=== PATIENT | male | born 1985 | race Two or more races ===

== ENCOUNTER 2022-12-07 18:41 | Inpatient (IN) | payer OTHER ==
[2022-12-07 19:29] VITALS: BMI 35.4
[2022-12-07] MEDS ORDERED: IBUPROFEN 400 MG TABLET (FP) PO PRN (19:43)
[2022-12-07] MEDS ORDERED: ONDANSETRON *ODT* 4 MG TABLET SL PRN (19:43)
[2022-12-07] MEDS ORDERED: IBUPROFEN 600 MG TABLET (FP) PO PRN (19:43)
[2022-12-07] MEDS ORDERED: guaiFENesin 600 MG TABLET.ER (FP) PO PRN (19:43)
[2022-12-07] MEDS ORDERED: DICYCLOMINE HCL 10 MG CAPSULE PO PRN (19:43)
[2022-12-07] MEDS ORDERED: BISMUTH SUBSALICYLATE 524 MG/30 ML PO PRN (19:43)
[2022-12-07] MEDS ORDERED: MAGNESIUM HYDROX 2400MG/30ML ORAL SUSPENSION 30 ML CUP PO PRN (19:43)
[2022-12-07] MEDS ORDERED: BENZOCAINE/MENTHOL (CHLORASEPTIC ) LOZENGE MM PRN (19:43)
[2022-12-07] MEDS ORDERED: BENZONATATE 200 MG CAPSULE PO PRN (19:43)
[2022-12-07] MEDS ORDERED: chlordiazePOXIDE HCL 25 MG CAPSULE PO PRN (19:43)
[2022-12-07] MEDS ORDERED: ACETAMINOPHEN 325 MG TABLET (FP) PO PRN (19:43)
[2022-12-07] MEDS ORDERED: NICOTINE 10 MG CARTRIDGE (INHALER) IH PRN (19:43)
[2022-12-07] MEDS ORDERED: MAG HYDROX/AL HYDROX/SIMETH 30 ML UNIT-DOSE CUP PO PRN (19:43)
[2022-12-07] MEDS ORDERED: METHOCARBAMOL 500 MG TABLET PO PRN (19:43)
[2022-12-07] MEDS ORDERED: NALOXONE HCL 0.4 MG/ML VIAL IM PRN (19:43)
[2022-12-07] MEDS ORDERED: POLYETHYLENE GLYCOL (HEALTHYLAX) 3350 17 GM PACKET PO PRN (19:43)
[2022-12-07] MEDS ORDERED: LOPERAMIDE HCL 2 MG CAPSULE PO PRN (19:43)
[2022-12-07] MEDS ORDERED: NALOXONE HCL (KLOXXADO) 8 MG SPRAY NS PRN (19:43)
[2022-12-07] MEDS ORDERED: cloNIDine HCL 0.1 MG TABLET PO ONE (19:45)
[2022-12-07] MEDS ORDERED: LORazepam 2 MG/ML SDV VIAL IM ONE (19:48)
[2022-12-07] MEDS ORDERED: cloNIDine HCL 0.1 MG TABLET ONE (19:57)
[2022-12-07] MEDS ORDERED: MELATONIN 5 MG TABLETS PO SCH (22:00)
[2022-12-07] MEDS: chlordiazePOXIDE HCL 25 MG CAPSULE PO SCH (22:16)
[2022-12-07] MEDS: THIAMINE HCL 100 MG TABLET (FP) PO SCH (22:17)
[2022-12-08] MEDS: chlordiazePOXIDE HCL 25 MG CAPSULE PO SCH ×4 (05:07→22:19)
[2022-12-08] MEDS: PRENATAL VITAMINS W/ FOLIC ACID TABLET (FP) PO SCH (10:18)
[2022-12-08 10:48] LABS: POTASSIUM 3.4 mmol/L (3.5-5.1)
[2022-12-08 10:50] LABS: CALCIUM 9.3 mg/dL (8.5-10.1)
[2022-12-08 10:51] LABS: ALBUMIN 3.6 g/dl (3.4-5.0); BLOOD UREA NITROGEN 10.2 mg/dL (7-18)
[2022-12-08 10:55] LABS: BILIRUBIN,TOTAL 0.8 mg/dL (0.2-1)
[2022-12-08 10:56] LABS: TOT PROT 7.8 g/dl (6.4-8.2)
[2022-12-08 11:00] LABS: HEMATOCRIT 40.3 % (35.4-49); HEMOGLOBIN 13.5 GM/dL (11.7-16.9); MCH 28.2 pg (25.7-33.7); MCHC 33.6 g/dl (32.0-35.9); MEAN PLT VOLUME 9.2 fl (7.5-11.1); PLATELET COUNT 190 10^3/uL (134-434); RDW 16.5 % (11.9-15.9); WHITE BLOOD COUNT 7.7 K/mm3 (4.0-10.0)
[2022-12-08] MEDS: DULoxetine HCL 60 MG CAPSULE.DR PO SCH ×4 (12:36→14:02)
[2022-12-08] MEDS: hydrOXYzine PAMOATE 25 MG CAPSULE (FP) PO PRN ×2 (13:19→20:45)
[2022-12-08] MEDS: DULoxetine HCL 30 MG CAPSULE.DR PO SCH (14:04)
[2022-12-08] MEDS ORDERED: SUVOREXANT 10 MG TABLET PO PRN (22:00)
[2022-12-08] MEDS: THIAMINE HCL 100 MG TABLET (FP) PO SCH (22:19)
[2022-12-09] MEDS: chlordiazePOXIDE HCL 25 MG CAPSULE PO SCH ×2 (05:25→10:45)
[2022-12-09 09:14] VITALS: BP 156/106; PULSE 111; RESP 18; TEMP 98.3
[2022-12-09] MEDS: PRENATAL VITAMINS W/ FOLIC ACID TABLET (FP) PO SCH (10:43)
[2022-12-09] MEDS: DULoxetine HCL 60 MG CAPSULE.DR PO SCH (10:44)
[2022-12-09] MEDS: DULoxetine HCL 30 MG CAPSULE.DR PO SCH (10:44)
[2022-12-10] MEDS ORDERED: chlordiazePOXIDE HCL 10 MG CAPSULE PO PRN
[2022-12-10] MEDS ORDERED: chlordiazePOXIDE HCL 10 MG CAPSULE PO SCH (05:00)
[2022-12-11] MEDS ORDERED: chlordiazePOXIDE HCL 10 MG CAPSULE PO SCH (05:00)
[2022-12-12] MEDS ORDERED: chlordiazePOXIDE HCL 10 MG CAPSULE PO ONE (05:00)
== END 2022-12-09 10:41 | disposition home or self-care (01) | DRG 775 ==
LOC: YASAS 18:41 → Y6N 20:51
PROVIDERS: ADMIT Allergy & Immunology; ATTEND Surgery
PROC: HZ2ZZZZ Detoxification Services for Substance Abuse Treatment (ICD-10-PCS; principal; 2022-12-07)
DX: F10.230 Alcohol dependence with withdrawal, uncomplicated (principal); F19.282 Other psychoactive substance dependence with psychoactive substance-induced sleep disorder; F41.9 Anxiety disorder, unspecified; F32.A Depression, unspecified; E87.6 Hypokalemia; J45.909 Unspecified asthma, uncomplicated; K21.9 Gastro-esophageal reflux disease without esophagitis; M54.50 Low back pain, unspecified; G89.29 Other chronic pain; R74.01 Elevation of levels of liver transaminase levels; R74.8 Abnormal levels of other serum enzymes; Z62.810 Personal history of physical and sexual abuse in childhood
CPT/HCPCS: 36415; 80053; 85027; 86780; 87811; 93005; 93010; C9803-CS; U0003; U0005

== ENCOUNTER 2023-07-16 14:36 | Inpatient (IN) | payer OTHER ==
[2023-07-16 15:59] VITALS: BMI 34.0
[2023-07-16] MEDS ORDERED: IBUPROFEN 400 MG TABLET (FP) PO PRN (18:42)
[2023-07-16] MEDS ORDERED: ONDANSETRON *ODT* 4 MG TABLET SL PRN (18:42)
[2023-07-16] MEDS ORDERED: chlordiazePOXIDE HCL 25 MG CAPSULE PO PRN (18:42)
[2023-07-16] MEDS ORDERED: IBUPROFEN 600 MG TABLET (FP) PO PRN (18:42)
[2023-07-16] MEDS ORDERED: MAGNESIUM HYDROX 2400MG/30ML ORAL SUSPENSION 30 ML CUP PO PRN (18:42)
[2023-07-16] MEDS ORDERED: DICYCLOMINE HCL 10 MG CAPSULE PO PRN (18:42)
[2023-07-16] MEDS ORDERED: ACETAMINOPHEN 325 MG TABLET (FP) PO PRN (18:42)
[2023-07-16] MEDS ORDERED: POLYETHYLENE GLYCOL (HEALTHYLAX) 3350 17 GM PACKET PO PRN (18:42)
[2023-07-16] MEDS ORDERED: guaiFENesin 600 MG TABLET.ER (FP) PO PRN (18:42)
[2023-07-16] MEDS ORDERED: BENZONATATE 200 MG CAPSULE PO PRN (18:42)
[2023-07-16] MEDS ORDERED: NALOXONE HCL (KLOXXADO) 8 MG SPRAY NS PRN (18:42)
[2023-07-16] MEDS ORDERED: hydrOXYzine PAMOATE 25 MG CAPSULE (FP) PO PRN (18:42)
[2023-07-16] MEDS ORDERED: BENZOCAINE/MENTHOL (CHLORASEPTIC ) LOZENGE MM PRN (18:42)
[2023-07-16] MEDS ORDERED: NALOXONE HCL 0.4 MG/ML VIAL IM PRN (18:42)
[2023-07-16] MEDS ORDERED: MAG HYDROX/AL HYDROX/SIMETH 30 ML UNIT-DOSE CUP PO PRN (18:42)
[2023-07-16] MEDS ORDERED: BISMUTH SUBSALICYLATE 524 MG/30 ML PO PRN (18:42)
[2023-07-16] MEDS ORDERED: LOPERAMIDE HCL 2 MG CAPSULE PO PRN (18:42)
[2023-07-16] MEDS ORDERED: chlordiazePOXIDE HCL 25 MG CAPSULE ONE (19:02)
[2023-07-16] MEDS: cloNIDine HCL 0.1 MG TABLET PO PRN (19:12)
[2023-07-16] MEDS: METHOCARBAMOL 500 MG TABLET PO PRN (22:12)
[2023-07-16] MEDS: MELATONIN 5 MG TABLETS PO SCH (22:12)
[2023-07-16] MEDS: THIAMINE HCL 100 MG TABLET (FP) PO SCH (22:12)
[2023-07-16] MEDS: chlordiazePOXIDE HCL 25 MG CAPSULE PO SCH (22:12)
[2023-07-17] MEDS: chlordiazePOXIDE HCL 25 MG CAPSULE PO SCH (05:57)
[2023-07-17] MEDS ORDERED: diazePAM 5 MG TABLET PO PRN (09:06)
[2023-07-17] MEDS: diazePAM 5 MG TABLET PO SCH ×3 (10:07→22:09)
[2023-07-17] MEDS: METHOCARBAMOL 500 MG TABLET PO PRN ×2 (10:08→22:07)
[2023-07-17] MEDS: PRENATAL VITAMINS W/ FOLIC ACID TABLET (FP) PO SCH (10:08)
[2023-07-17] MEDS: cloNIDine HCL 0.1 MG TABLET PO PRN ×3 (10:08→22:07)
[2023-07-17] MEDS: MELATONIN 5 MG TABLETS PO SCH (22:07)
[2023-07-17] MEDS: THIAMINE HCL 100 MG TABLET (FP) PO SCH (22:08)
[2023-07-18] MEDS ORDERED: chlordiazePOXIDE HCL 25 MG CAPSULE PO SCH (05:00)
[2023-07-18] MEDS: diazePAM 5 MG TABLET PO SCH ×4 (05:57→22:05)
[2023-07-18] MEDS: DULoxetine HCL 30 MG CAPSULE.DR PO SCH (10:06)
[2023-07-18] MEDS: PRENATAL VITAMINS W/ FOLIC ACID TABLET (FP) PO SCH (10:06)
[2023-07-18] MEDS: MELATONIN 5 MG TABLETS PO SCH (22:03)
[2023-07-18] MEDS: THIAMINE HCL 100 MG TABLET (FP) PO SCH (22:03)
[2023-07-18] MEDS: cloNIDine HCL 0.1 MG TABLET PO PRN (22:03)
[2023-07-18] MEDS: METHOCARBAMOL 500 MG TABLET PO PRN (22:03)
[2023-07-19] MEDS ORDERED: chlordiazePOXIDE HCL 10 MG CAPSULE PO PRN
[2023-07-19] MEDS ORDERED: chlordiazePOXIDE HCL 10 MG CAPSULE PO SCH (05:00)
[2023-07-19] MEDS: diazePAM 5 MG TABLET PO SCH ×3 (05:51→22:18)
[2023-07-19] MEDS: PRENATAL VITAMINS W/ FOLIC ACID TABLET (FP) PO SCH (10:02)
[2023-07-19] MEDS: DULoxetine HCL 30 MG CAPSULE.DR PO SCH (10:02)
[2023-07-19] MEDS: THIAMINE HCL 100 MG TABLET (FP) PO SCH (22:18)
[2023-07-19] MEDS: MELATONIN 5 MG TABLETS PO SCH (22:18)
[2023-07-19] MEDS: METHOCARBAMOL 500 MG TABLET PO PRN (22:20)
[2023-07-20] MEDS ORDERED: chlordiazePOXIDE HCL 10 MG CAPSULE PO SCH (05:00)
[2023-07-20] MEDS ORDERED: diazePAM 5 MG TABLET PO SCH (06:00)
[2023-07-20 06:41] VITALS: TEMP 97.7
[2023-07-20 09:10] VITALS: PULSE 83; RESP 20
[2023-07-20 09:11] VITALS: BP 156/116
[2023-07-20] MEDS: PRENATAL VITAMINS W/ FOLIC ACID TABLET (FP) PO SCH (10:13)
[2023-07-20] MEDS: DULoxetine HCL 30 MG CAPSULE.DR PO SCH (10:13)
[2023-07-21] MEDS ORDERED: chlordiazePOXIDE HCL 10 MG CAPSULE PO ONE (05:00)
[2023-07-21] MEDS ORDERED: diazePAM 5 MG TABLET PO ONE (06:00)
== END 2023-07-20 10:02 | disposition home or self-care (01) | DRG 775 ==
LOC: YASAS 14:36 → Y3N 18:43
PROVIDERS: ADMIT Allergy & Immunology; ATTEND Surgery
PROC: HZ2ZZZZ Detoxification Services for Substance Abuse Treatment (ICD-10-PCS; principal; 2023-07-16)
DX: F10.230 Alcohol dependence with withdrawal, uncomplicated (principal); F41.9 Anxiety disorder, unspecified; F32.A Depression, unspecified; G47.00 Insomnia, unspecified; M54.50 Low back pain, unspecified; G89.29 Other chronic pain; Z87.19 Personal history of other diseases of the digestive system; Z91.199 Patient's noncompliance with other medical treatment and regimen due to unspecified reason
CPT/HCPCS: 87635